=== PATIENT | male | born 1985 | race African-American/Black ===

== ENCOUNTER 2018-05-03 15:19 | Emergency (ER) | payer OTHER ==
[~2018-05-03] VITALS: Ht 170.2 cm; Wt 86.7 kg
[~2018-05-03 15:19] MED LIST: WARF6TAB PO
[2018-05-03 15:55] VITALS: BP 147/105
--- NOTE | 2018-05-03 15:56 | NUR ---
PT AMBULATES TO BED 2
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
[2018-05-03] MEDS ORDERED: LIDOCAINE 1% 500 MG/50 ML VIAL INJ SCH (16:20)
[2018-05-03] MEDS ORDERED: LIDOCAINE MPF 1% 5mL VIAL ONE (16:39)
--- NOTE | 2018-05-03 17:44 | NUR ---
PLACED A NON ADHERANT DRESSING ON PT'S WOUNDS AND WRAPPED WITH A ROLL OF GAUZE.
[2018-05-03 17:54] VITALS: BP 135/85
--- NOTE | 2018-05-03 17:55 | NUR ---
Patient discharged with v/s stable. Written and verbal after care instructions given and explained. Patient alert, oriented and verbalized understanding of instructions. Ambulatory with steady gait. All questions addressed prior to discharge. ID band removed. Patient advised to follow up with PMD. Rx of NORCO, AUGMENTIN, BACITRACIN given. Patient educated on indication of medication including possible reaction and side effects. Opportunity to ask questions provided and answered.
== END 2018-05-03 17:55 | disposition home or self-care (01) ==
LOC: MED 15:19
DX: S81.851A Open bite, right lower leg, initial encounter (principal); Z79.899 Other long term (current) drug therapy; W54.0XXA Bitten by dog, initial encounter; Y93.89 Activity, other specified; Y92.89 Other specified places as the place of occurrence of the external cause; Y99.8 Other external cause status
CPT/HCPCS: 90471; 90715; 99283; J2001